=== PATIENT | female | born 1950 | race Caucasian/White ===

== ENCOUNTER 2016-07-06 15:26 | Emergency (ER) | payer MEDICARE, MEDICAID ==
[2016-03-03 10:08] VITALS: BMI 34.5
[~2016-07-06 15:26] MED LIST: ADVAIR HFA [SP]12 GM INH; BAYER CHEWABLE81 MG PO; CEFTIN500 MG PO; COUMADIN2.5 MG PO; COUMADIN5 MG PO; DILATRATE-SR40 MG PO; DUONEB 2.5-0.5 M3 ML IH; DUONEB 2.5-0.5 M3 ML UPD; GLUCOPHAGE1000 MG PO; GLUCOTROL 5 MG T5 MG PO; HYDROCODONE-APA1 TAB PO; IMDUR30 MG PO; IPRAT-ALBUT 0.5-3 ML UPD; ISORDIL40 MG PO; ISOSORBIDE DINI10 MG PO; LANTUS INSULIN10 ML PO; LANTUS SOL100 UNIT/1 SQ; LASIX20 MG PO; MEDROL DOSE PACK4 MG PO; MOBIC7.5 MG PO; MUCINEX DM ER1 EAC1 PO; NITROSTAT0.4 MG SL; NORVASC5 MG PO; PAXIL10 MG PO; PLAVIX75 MG PO; PRINIVIL20 MG PO; PROVENTIL HFA6.7 GM INH; RYTHMOL150 MG PO; SYMBICORT; SYMBICORT 16010.2 GM IH; SYMBICORT 16010.2 GM INH; TAGAMET HB200 MG PO; ULTRAM50 MG PO; WELLBUTRIN XL150 M1 PO
== END 2016-07-06 17:11 | disposition home or self-care (01) ==
LOC: D.ER 15:26
DX: S81.012A Laceration without foreign body, left knee, initial encounter (principal); W19.XXXA Unspecified fall, initial encounter; Y93.89 Activity, other specified; Y92.512 Supermarket, store or market as the place of occurrence of the external cause; I10 Essential (primary) hypertension; E11.65 Type 2 diabetes mellitus with hyperglycemia; Z79.4 Long term (current) use of insulin; F17.200 Nicotine dependence, unspecified, uncomplicated

== ENCOUNTER 2017-01-09 12:31 | Emergency (ER) | payer MEDICARE, MEDICAID ==
[2016-03-03 10:08] VITALS: BMI 34.5
[2017-01-09 12:48] LABS: APPEARANCE CLEAR (CLEAR); COLOR YELLOW (YELLOW); LEUKOCYTE ESTERASE NEGATIVE (NEGATIVE); NITRITE NEGATIVE (NEGATIVE); PROTEIN NEGATIVE (NEGATIVE)
[2017-01-09 12:49] LABS: BILIRUBIN NEGATIVE (NEGATIVE); GLUCOSE 1000 mg/dL (NEGATIVE); KETONE NEGATIVE (NEGATIVE); UROBILINOGEN NORMAL (NORMAL)
== END 2017-01-09 14:49 | disposition home or self-care (01) ==
LOC: D.ER 12:31
PROVIDERS: Emergency Medicine
DX: S39.012A Strain of muscle, fascia and tendon of lower back, initial encounter (principal); X58.XXXA Exposure to other specified factors, initial encounter; Y93.89 Activity, other specified; Y92.89 Other specified places as the place of occurrence of the external cause; E11.9 Type 2 diabetes mellitus without complications; Z79.4 Long term (current) use of insulin

== ENCOUNTER → 2017-01-22 10:19 | Outpatient (CLI) | payer MEDICARE, MEDICAID ==
[2016-03-03 10:08] VITALS: BMI 34.5
== END | disposition home or self-care (01) ==
LOC: D.MRI 10:19
DX: M47.26 Other spondylosis with radiculopathy, lumbar region (principal)

== ENCOUNTER 2017-06-14 15:03 | Emergency (ER) | payer MEDICARE, MEDICAID ==
[2016-03-03 10:08] VITALS: BMI 34.5
[2017-06-14 16:35] LABS: BASOPHILS 0.3 % (0-2); EOSINOPHILS 1.7 % (0-7); HEMATOCRIT 47.8 % (36.0-48.0); HEMOGLOBIN 15.8 g/dL (12-16); IMMATURE GRANULOCYTES 0.7 % (0-5); LYMPHOCYTES 21.2 % (15-50); MCH 32.6 pg (26.0-34.0); MCHC 33.1 g/dL (31.0-37.0); MCV 98.8 fL (80.0-100.0); MEAN PLATELET VOLUME 9.6 fL (7.4-10.4); MONOCYTES 9.4 % (2-11); NEUTROPHILS 66.7 % (40-80); RBC 4.84 10x6/uL (4.00-5.40); RDW 14.2 % (11.5-14.5); WBC 11.8 10x3/uL (4.8-10.8)
[2017-06-14 16:38] LABS: PLATELET COUNT 256 10x3/uL (130-400)
== END 2017-06-14 18:03 | disposition home or self-care (01) ==
LOC: D.ER 15:03
PROVIDERS: Family Medicine
DX: S20.212A Contusion of left front wall of thorax, initial encounter (principal); S20.211A Contusion of right front wall of thorax, initial encounter; V49.9XXA Car occupant (driver) (passenger) injured in unspecified traffic accident, initial encounter; Y93.89 Activity, other specified; Y92.410 Unspecified street and highway as the place of occurrence of the external cause; S80.212A Abrasion, left knee, initial encounter; E11.9 Type 2 diabetes mellitus without complications

== ENCOUNTER → 2017-06-24 17:44 | Outpatient (CLI) | payer MEDICARE, MEDICAID ==
[2016-03-03 10:08] VITALS: BMI 34.5
== END | disposition home or self-care (01) ==
LOC: D.MAMMO 05-19 11:00
DX: Z12.31 Encounter for screening mammogram for malignant neoplasm of breast (principal)

== ENCOUNTER 2017-07-20 08:10 | Day surgery (SDC) | payer MEDICARE ==
[2017-07-19 11:57] LABS: ANION GAP 12.7 mmol/L (8-16); CALCIUM 9.5 mg/dL (8.5-10.1); CARBON DIOXIDE 30.1 mmol/L (21.0-32.0); POTASSIUM - SERUM 4.8 mmol/L (3.5-5.1)
--- NOTE | ~2017-07-20 | OP ---
PATIENT NAME: MARKO HAMMER MEDICAL RECORD: [id number] :52 LOCATION:[facility] ADMISSION DATE: SURGEON: JYOTI MATOS MD DATE OF OPERATION: 07/20/2017 PREOPERATIVE DIAGNOSES: Lumbar spinal stenosis and foraminal stenosis, L4-L5, right. POSTOPERATIVE DIAGNOSES: Lumbar spinal stenosis and foraminal stenosis, L4-L5, right. PROCEDURE: Lumbar laminectomy, medial facetectomy and foraminotomy at L4-L5 on the right with METRx retractor. DESCRIPTION AND TECHNIQUE: After induction of general endotracheal anesthesia, the patient was rolled prone on Georgi frame. Lumbar spine was prepped and draped in usual sterile fashion. Fluoroscopic x-ray and spinal needle localized the L4-L5 interspace on the right side. A stab incision was created with #11 blade and series of dilators was used to advance a METRx retractor at the L4-L5 interspace on the right side. Fluoroscopic x-ray confirmed the level. A Midas Murali drill and microscope were used to perform a laminectomy, medial facetectomy, and foraminotomy L4-L5 on the right. Hypertrophied ligamentum flavum was removed with Cloward rongeurs. The dura was decompressed well. Meticulous hemostasis was maintained throughout the wound. The wound was irrigated with copious amounts of Ancef irrigant solution. The dura was decompressed well. Meticulous hemostasis was maintained throughout the wound. The fascia was closed with a 2-0 Vicryl suture. The subdermal layer was closed with 3-0 Vicryl suture. The skin was closed with kelsie. A sterile dressing was applied to the wound. The patient was awakened in good condition and taken to recovery. All counts were reported as correct. Estimated blood loss was minimal. TRANSINT:[id number] Voice Confirmation ID: [id number] DOCUMENT ID: [id number] JYOTI MATOS MD at 1947 CC: [id number] DICTATION DATE: 07/23/17 1435 INTEGRATED LOGISTICS SUPPORT MANAGER: 07/23/17 1451 [facility] 07/20/17 [place] [address]
[~2017-07-20 08:10] MED LIST changes: +GABAPENTIN100 MG PO; +INVOKANA300 MG PO; +ISOSORBIDE DINI30 MG PO; -LANTUS INSULIN10 ML PO; +LANTUS INSULIN10 ML SC; +PRAVASTATIN SOD10 MG PO; +PRINIVIL10 MG PO; -PRINIVIL20 MG PO
[2017-07-20 08:37] VITALS: BP 121/68; BMI 34.8
== END 2017-07-20 16:54 | disposition home or self-care (01) ==
LOC: D.OPS 08:10 → D.PAN 10:30 → D.OPS 16:54
PROVIDERS: Anesthesiology
DX: M48.061 Spinal stenosis, lumbar region without neurogenic claudication (principal); M54.16 Radiculopathy, lumbar region; I10 Essential (primary) hypertension; E11.9 Type 2 diabetes mellitus without complications; J44.9 Chronic obstructive pulmonary disease, unspecified; E66.9 Obesity, unspecified; Z01.812 Encounter for preprocedural laboratory examination

== ENCOUNTER → 2017-08-20 16:21 | Outpatient (CLI) | payer MEDICARE | END | disposition home or self-care (01) | LOC: D.MAMMO 07-29 13:30 | DX: R92.8 Other abnormal and inconclusive findings on diagnostic imaging of breast (principal) ==

== ENCOUNTER → 2017-10-27 12:55 | Outpatient (CLI) | payer MEDICARE | END | disposition home or self-care (01) | LOC: D.MRI 12:55 | DX: M54.16 Radiculopathy, lumbar region (principal) ==

== ENCOUNTER → 2018-02-21 16:05 | Outpatient (CLI) | payer MEDICARE ==
[~2018-02-21 16:05] MED LIST changes: +CLEOCIN HCL300 MG PO
== END | disposition home or self-care (01) ==
LOC: D.MAMMO 09:00
DX: R92.8 Other abnormal and inconclusive findings on diagnostic imaging of breast (principal)

== ENCOUNTER 2018-03-05 10:13 | Emergency (ER) | payer MEDICARE ==
[~2018-03-05] VITALS: Ht 154.9 cm; Wt 81.8 kg
[~2018-03-05 10:13] MED LIST changes: -CLEOCIN HCL300 MG PO
[2018-03-05 10:22] VITALS: Ht 154.9 cm; Wt 81.8 kg
[2018-03-05] MEDS ORDERED: CLEOCIN HCL300 MG PO (10:58)
[2018-03-05 11:25] VITALS: BP 131/78
== END 2018-03-05 11:26 | disposition home or self-care (01) ==
LOC: D.ER 10:13
DX: L03.114 Cellulitis of left upper limb (principal); E11.9 Type 2 diabetes mellitus without complications; I10 Essential (primary) hypertension; I25.10 Atherosclerotic heart disease of native coronary artery without angina pectoris; J44.9 Chronic obstructive pulmonary disease, unspecified

== ENCOUNTER → 2018-06-24 09:52 | Outpatient (CLI) | payer MEDICARE ==
[2018-03-05 10:22] VITALS: BMI 34.0
[~2018-06-24 09:52] MED LIST changes: +CLEOCIN HCL300 MG PO
== END | disposition home or self-care (01) ==
LOC: D.MRI 09:52
DX: M54.16 Radiculopathy, lumbar region (principal)

== ENCOUNTER 2018-08-10 08:00 | Outpatient (CLI) | payer MEDICARE ==
[2018-03-05 10:22] VITALS: Wt 83.5 kg
[2018-08-10] MEDS ORDERED: LEVEMIR FL100 UNIT/1 SC (09:13)
[2018-08-10 10:21] LABS: ANION GAP 11.6 mmol/L (8-16); CALCIUM 8.7 mg/dL (8.5-10.1); CARBON DIOXIDE 31.9 mmol/L (21.0-32.0); CREATININE - SERUM 0.9 mg/dL (0.6-1.3); POTASSIUM - SERUM 3.5 mmol/L (3.5-5.1)
[2018-08-10 11:27] LABS: HEMATOCRIT 43.6 % (36.0-48.0); HEMOGLOBIN 14.6 g/dL (12-16); MCH 31.9 pg (26.0-34.0); MCHC 33.5 g/dL (31.0-37.0); MCV 95.4 fL (80.0-100.0); MEAN PLATELET VOLUME 10.6 fL (7.4-10.4); RBC 4.57 10x6/uL (4.00-5.40); RDW 13.2 % (11.5-14.5); WBC 10.1 10x3/uL (4.8-10.8)
== END 2018-08-10 08:01 | disposition home or self-care (01) ==
LOC: D.OPS 08:00 → D.PAN 08-11 12:45 → EDSTATUS 08-11 12:45 → D.OPS 08-11 12:45
PROVIDERS: Anesthesiology; ATTEND Neurological Surgery
DX: M54.16 Radiculopathy, lumbar region (principal)

== ENCOUNTER → 2018-08-24 18:24 | Outpatient (CLI) | payer MEDICARE ==
[2018-03-05 10:22] VITALS: BMI 34.0
[~2018-08-24 18:24] MED LIST changes: +LEVEMIR FL100 UNIT/1 SC
== END | disposition home or self-care (01) ==
LOC: D.MAMMO 09:00
PROVIDERS: ATTEND Family Medicine
DX: R92.8 Other abnormal and inconclusive findings on diagnostic imaging of breast (principal)

== ENCOUNTER 2018-09-09 09:05 | Day surgery (SDC) | payer MEDICARE ==
[2018-09-09 09:23] LABS: HEMATOCRIT 45.5 % (36.0-48.0); HEMOGLOBIN 15.2 g/dL (12-16); MCH 31.9 pg (26.0-34.0); MCHC 33.4 g/dL (31.0-37.0); MCV 95.6 fL (80.0-100.0); MEAN PLATELET VOLUME 9.7 fL (7.4-10.4); RBC 4.76 10x6/uL (4.00-5.40); RDW 13.8 % (11.5-14.5); WBC 7.6 10x3/uL (4.8-10.8)
[2018-09-09 09:34] LABS: ANION GAP 8.4 mmol/L (8-16); CALCIUM 9.6 mg/dL (8.5-10.1); CARBON DIOXIDE 31.8 mmol/L (21.0-32.0); POTASSIUM - SERUM 4.2 mmol/L (3.5-5.1)
[2018-09-09 10:29] VITALS: BP 165/96; BMI 34.0
--- NOTE | 2018-09-09 17:56 | NUR ---
PATIENT COMPLAINED OF BEING SHORT OF BREATH. O2 SAT 94% 4L NASAL CANNULA. PATIENT'S STATES SHE DOES WEAR HOME O2 2L/NC CONTINOUSLY. CONSULTED ANESTHESIA. VERBAL ORDERS RECEIVED TO ADMINISTER ALBUTEROL UPDRAFT IN PACU NOW. ORDERS RECEIVED AND IMPLEMENTED. WILL CONTINUE TO MONITOR.
--- NOTE | 2018-09-09 19:28 | NUR ---
DISCHARGE INSTRUCTIONS REVIEWED WITH PATIENT AND FAMILY, DISCHARGED HOME VIA WHEELCHAIR TO PRIVATE VEHICLE WITH FAMILY
--- NOTE | 2018-09-22 15:29 | OP ---
PATIENT NAME: MARKO HAMMER MEDICAL RECORD: [id number] :52 LOCATION:[facility] ADMISSION DATE: SURGEON: JYOTI TAYLOR MD DATE OF OPERATION: 09/09/2018 SURGEON: Dr. Jyoti Taylor PREOPERATIVE DIAGNOSES: Lumbar spinal stenosis and foraminal stenosis with L5 radiculopathy and L4-L5 foraminal stenosis. POSTOPERATIVE DIAGNOSES: Lumbar spinal stenosis and foraminal stenosis with L5 radiculopathy and L4-L5 foraminal stenosis. PROCEDURE: Redo lumbar laminectomy at L4-L5 with exploration of right L5 nerve root. DESCRIPTION AND TECHNIQUE: After induction of general endotracheal anesthesia, the patient was rolled prone on the Georgi frame. Lumbar spine was prepped and draped in usual sterile fashion. Fluoroscopic x-ray and spinal needle localized at the L4-L5 interspace on the right side. After infiltration 1:100,000 epinephrine and 1% lidocaine, a stab incision was created with a #11 blade. A series of dilators was used to advance a METRx retractor to the L4-L5 interspace on the right side. The level was confirmed with fluoroscopic x-ray. A MRI Interventionsas Murali drill and microscope were used to perform a laminectomy, medial facetectomy, and foraminotomy L4-L5 on the right. Hypertrophied ligamentum flavum was removed with Cloward rongeurs. Following this, the L4 and L5 nerve roots were decompressed well. Meticulous hemostasis was maintained throughout the wound. The disc space was found to cause no significant nerve root compression, was therefore left untouched. The retractor was removed. The fascia was closed with 2-0 Vicryl suture. Subdermal layer was closed with 3-0 Vicryl suture. The skin was closed with kelsie. A sterile dressing was applied to the wound. The patient was awakened in good condition and taken to the recovery. All counts were reported as correct. Estimated blood loss was minimal. TRANSINT:[id number] Voice Confirmation ID: [id number] DOCUMENT ID: [id number] JYOTI TAYLOR MD at 1529 CC: [id number] DICTATION DATE: 09/14/182201 CLINICAL SERVICES MANAGER: 09/15/18 0331 [facility] 09/09/18 [place] [id number]
== END 2018-09-09 19:28 | disposition home or self-care (01) ==
LOC: D.OPS 09:05 → D.PAN 11:45 → D.OPS 11:45
PROVIDERS: Anesthesiology; ATTEND Neurological Surgery
DX: M54.16 Radiculopathy, lumbar region (principal); M48.061 Spinal stenosis, lumbar region without neurogenic claudication

== ENCOUNTER 2018-09-18 17:51 | Observation (INO) | payer MEDICARE ==
[~2018-09-18] VITALS: Ht 154.9 cm; Wt 81.8 kg
--- NOTE | ~2018-09-18 | DS ---
PATIENT:MARKO RUSSELL :52 MEDICAL RECORD: [id number] DISCHARGE SUMMARY ADMISSION DATE: 09/18/18 DISCHARGE DATE: 09/19/18 DISCHARGE DIAGNOSES: 1. Unstable angina. 2. PTCA and stent of this admission. 3. Coronary artery disease. 4. Hypertension. 5. Hyperlipidemia. HISTORY AND HOSPITAL COURSE: Ms. Russell presented with anginal symptomatology, found to have 90% plus stenosis of her LAD. Underwent successful PTCA and stent of the LAD with no further anginal symptomatology. Discharged home to continue her aspirin and Plavix. Follow up with [facility] in 1 month. TRANSINT:[id number] Voice Confirmation ID: [id number] DOCUMENT ID: [id number] JOSE ARMANDO RODRIGUES MD CC: [id number] DICTATION DATE: 09/19/18 1241 CERTIFIED BENCH JEWELER TECHNICIAN: 09/20/18 0447 DIS IN 09/19/18 [address] [place] [address]
--- NOTE | ~2018-09-18 | HP ---
PATIENT: MARKO RUSSELL MEDICAL RECORD: [id number] ACCOUNT: [id number] LOCATION:. D.2117 : 52 ADMISSION DATE: 09/18/18 PCP: LOKESH COOL MD HISTORY AND PHYSICAL EXAMINATION ADMITTING DIAGNOSES: 1. Unstable angina. 2. Coronary artery disease. 3. Previous multivessel PTCA stent, last being 2015. 4. Paroxysmal atrial fibrillation. 5. Hypertension. 6. Hyperlipidemia. 7. Chronic obstructive pulmonary disease. 8. Past smoking history. HISTORY OF PRESENT ILLNESS: Mrs. Russell has had increasing episodes of chest pain, chest discomfort compatible with angina despite maximal medical therapy of beta-jocelyne, ANGELY inhibitor and nitrate. Her chest pain has been increasing for the past 2 weeks. It is just like that of her previous angina. Last cardiac stent she required was in 2015. She has not had any atrial fibrillation or palpitations. The chest pain got quite severe yesterday. She presented to the Emergency Room. Her EKG is suggestive of previous anterior myocardial infarction; however, there is no acute ST-T changes. PHYSICAL EXAMINATION: GENERAL APPEARANCE: Well-nourished, well-developed, appears stated age. Level of distress, comfortable. PSYCHIATRIC: Mental status, alert, normal affect. Orientation, oriented to time, place and person. EYES: Lids and conjunctiva, noninjected. No discharge, no pallor. ENT: Lips, teeth, gums, normal dentition. Oropharynx, no cyanosis, no pallor. NECK: Carotid arteries, bilateral normal upstroke, no bruits, no thrills. JUGULAR VEINS: No jugular venous pressure or distention. CERVICAL LYMPH NODES: Nontender, nonenlarged. THYROID: Not enlarged. Nontender. No nodules. LUNGS: Respiratory effort, unlabored. CHEST: Normal curvature. No thoracic deformity. No chest wall tenderness. Percussion, resonant. Auscultation, clear. No wheezes, no rales, no rhonchi. CARDIOVASCULAR: Precordial exam, nondisplaced. No heaves or pericardial thrills. Rate and rhythm, regular. Heart sounds, normal S1, normal S2. No S3, no gallop, no rub. Systolic murmur, not heard. Diastolic murmur, not heard. EXTREMITIES: No cyanosis, no edema. Peripheral pulses, full and equal in all extremities, except as noted. No bruits appreciated. ABDOMEN: Soft, nondistended. Normal aorta. No bruit. Nontender. No masses. Liver, nontender, no hepatomegaly. Spleen, nontender, no splenomegaly. MUSCULOSKELETAL: No joint tenderness. No joint swelling. No erythema. NEUROLOGICAL: Normal gait, normal strength, normal tone. SKIN: Warm and dry. OVERALL IMPRESSION: Continued episodes of chest discomfort in an unstable fashion. We will proceed with coronary angiography. Further care depends upon findings of the angiography. TRANSINT:[id number] Voice Confirmation ID: [id number] DOCUMENT ID: [id number] HISTORY AND PHYSICAL [id number] MARKO RUSSELL JEFFREY MD CC: [id number] DICTATION DATE: 09/19/18903 CAR STARTER: 09/19/18915 ADM IN [address] [place] [address]
--- NOTE | ~2018-09-18 | HEMODYNAMI ---
PATIENT:MARKO HAMMER MEDICAL RECORD: [id number] : 52 [id number] ADMISSION DATE: 09/18/18 Generatedon:09/19/201812:45 Patient name: MARKO HAMMER Patient #: [id number] : 1950 Date of study: 09/19/2018 Page: Of Hemodynamic Procedure Report Patient Data Patient Demographics Procedure consent was obtained First Name: MARKO Gender: Female Last Name: JAQUELIN : 1950 [facility] Initial: ANA Age: 68 year(s) Patient #: [id number] Race: SSN: [id number] Additional ID: [id number] Contact details Address: [address] [address] State: [place] City: [place] Zip code: [address] Past Medical History History of disease Date Diagnosis Comments CAD Allergies: No known allergies Admission Admission Data Admission Date: 09/18/2018 Admission Time: 20:00 Room #: D.2117 Height (in.): 60.63 BSA: 1.8 (m2) Height (cm.): 154 BMI: 34.58 (kg/m2) Weight (lbs.): 180.78 Weight (kg.): 82 Lab Results Lab Result Date: 09/19/2018 Lab Result Time: 0:00 Biochemistry Name Units Result Min Max BUN mg/dl 23 --(----)-* 7 18 Creatinine mg/dl 1.1 --(--*-)-- 0.6 1.3 CBC Name Units Result Min Max Hematocrit % 45 --(*---)-- 42 54 Hemoglobin g/dl 15.3 --(-*--)-- 13.5 17.5 Procedure Procedure Types Cath Procedure Diagnostic Procedure [facility] w/Coronaries FFR/IVUS FFR Initial Sedation Charges Moderate Sedation up to 15 minutes PCI Procedure Coronary Stent Coronary Stent Initial Procedure Description Procedure Date Procedure Date: 09/19/2018 Procedure Start Time: 12:21 Procedure End Time: 12:39 Procedure Staff Name Function Kang Mcclain MD Performing Physician Shayne Zhang RT Monitor Karma Lopez RT Scrub Tamra Xiao RN Nurse Luiz Goode RN Cyanide Furnace Operator Procedure Data Cath Procedure Fluoroscopy Diagnostic fluoroscopy Total fluoroscopy Time: 4.9 time: 4.9 min min Diagnostic fluoroscopy Total fluoroscopy dose: 808 dose: 808 mGy mGy Contrast Material Contrast Material Type Amount (ml) Isovue 300 127 Entry Location Entry Primary Successful Side Size Upsize Upsize Entry Closure Succes sful Closure Location (Fr) 1 (Fr) 2 (Fr) Remarks Device Remarks Femoral Right 5 Fr 6 Fr Exoseal artery Short Estimated blood loss: 10 ml Diagnostic catheters Device Type Used For End Catheter Placement MULTIPACK Pigtail 5 Fr Procedure catheter MULTIPACK JL 4.0 5Fr Procedure catheter MULTIPACK 3DRC 5Fr Procedure catheter Procedure Complications No complications Procedure Medications Medication Administration Route Dosage Oxygen etCO2 Nasal cannula 2 l/min Lidocaine 2% added to field 20 Heparin Flush Bag added to field 2 bags (1000units/500ml NS) 0.9% NaCl I.V. 100 ml/hr Versed I.V. 1 mg Fentanyl I.V. 50 mcg Versed I.V. 1 mg Fentanyl I.V. 50 mcg Heparin Bolus I.V. 4000 units Nitroglycerin IC/IA I.C. 200 mcg Plavix P.O. 75 mg Hemodynamics Rest BSA: 1.8 (m2) HGB: 15.3 (g/dl) O2 Consumption: Estimated: 166.54 (ml/min) O2 Con sumption indexed: Estimated:92.52 (ml/min/m) Heart Rate: 69 (bpm) Snapshots Pre Cath Intra NCS Post Cath Vital Signs Time Heart Resp SPO2 etCO2 NIBP (mmHg) Rhythm Pain Sedation Rate (ipm) (%) (mmHg) Status Level (bpm) 12:03:03 63 16 98 38.2 Measuring NSR 0 (11) 10(A) , No pain 12:03:40 61 20 98 38.2 189/90(158) NSR 0 (11) 10(A) , No pain 12:08:17 63 14 99 39.7 182/84(128) NSR 0 (11) 10(A) , No pain 12:12:39 64 10 97 45.7 134/73(91) NSR 0 (11) 10(A) , No pain 12:16:55 59 20 96 48.6 110/72(106) NSR 0 (11) 10(A) , No pain 12:21:04 61 16 96 38.2 110/77(106) NSR 0 (11) 9(A) , No pain 12:25:20 70 17 93 20.9 94/58(81) NSR 0 (11) 9(A) , No pain 12:29:26 69 18 96 14.9 107/70(103) NSR 0 (11) 9(A) , No pain 12:33:38 64 10 96 18.7 102/67(99) NSR 0 (11) 9(A) , No pain 12:37:48 73 15 96 29.2 84/54(76) NSR 0 (11) 10(A) , No pain 12:42:02 69 6 97 17.2 98/86(96) NSR 0 (11) 10(A) , No pain 12:44:34 66 7 97 38.9 99/63(91) NSR 0 (11) 10(A) , No pain Medications Time Medication Route Dose Verified Delivered Reason Notes Effectiveness by by 12:04:08 Oxygen etCO2 2 Kang Buffie used for Nasal l/min Johny Xiao RN procedure cannula 12:08:14 Lidocaine 2% added 20ml Kang Kang for local to vial Johny Mcclain MD anesthetic field 12:08:20 Heparin Flush added 2 Kang Kang used for Bag to bags Johny Mcclain MD procedure (1000units/500ml field NS) 12:08:28 0.9% NaCl I.V. 100 Kang Buffie Per physician ml/hr Johny Xiao RN 12:13:34 Versed I.V. 1 mg Kang Buffie for sedation Johny Xiao RN 12:13:40 Fentanyl I.V. 50 Kang Buffie for sedation mcg Johny Xiao RN 12:20:15 Versed I.V. 1 mg Kang Buffie for sedation Johny Xiao RN 12:20:19 Fentanyl I.V. 50 Kang Buffie for sedation mcg Johny Xiao RN 12:27:54 Heparin Bolus I.V. 4000 Kang Buffie for verif ied units Johny Xiao RN anticoagulation with dr mcclain 12:36:09 Nitroglycerin I.C. 200 Kang Kapadia for IC/IA mcg Johny Mcclain MD vasodilation 12:39:23 Plavix P.O. 75 mg Kang Barboza for Johny Xiao RN antiplatelet therapy Procedure Log Time Note 11:32:06 Signed procedure consent form obtained from patient. 11:32:10 Time tracking: Regular hours (M-F 7:00 - 5:00) 11:32:15 Plan of Care:Hemodynamics will remain stable., Cardiac rhythm will remain stable., Comfort level will be maintained., Respiratory function will remain adequate., Patient/ family verbilizes understanding of procedure., Procedure tolerated without complication., Recovers from procedure without complications.. 11:32:18 Diagnostic Cath status Urgent 11:33:02 Patient allergic to No known allergies 11:33:11 Patient Weight : 180.78 lbs 11:33:15 Patient Height : 60.63 inches 11:35:10 Lab Result : Creatinine 1.1 mg/dl 11:35:10 Lab Result : BUN 23 mg/dl 11:35:10 Lab Result : Hemoglobin 15.3 g/dl 11:35:10 Lab Result : Hematocrit 45 % 11:40:50 Luiz Goode RN sent for patient. Start room use. 11:49:14 Patient received from Med II to CCL 1 Alert and oriented. Tansferred to table in Supine position. 11:49:15 Warm blankets applied, and mckenna hugger turned on for patient comfort. 11:49:15 Correct patient and procedure confirmed by team. 11:49:16 ECG and BP/O2 sat monitors applied to patient. 11:49:18 Pre-procedure instructions explained to patient. 11:49:19 Pre-op teaching completed and patient verbalized understanding. 11:49:20 Family in waiting room. 11:52:20 Is patient on blood thinner?Yes 11:52:30 PRE LOADED ON PLAVIX 11:52:32 Patient diabetic? Yes. 11:52:33 If diabetic: On Metformin? No 11:52:38 Previous problem with sedation/anesthesia? No ? 11:52:39 Snore? No 11:52:40 Sleep apnea? No 11:52:41 Deviated septum? No 11:52:42 Opens mouth fully? Yes 11:52:43 Sticks out tongue? Yes 11:52:46 Airway obstruction? Yes COPD 11:52:49 Dentures? Yes OUT 12:01:13 Vital chart was started 12:01:24 Baseline sample Acquired. 12:01:29 Rhythm: sinus rhythm 12:01:35 Full Disclosure recording started 12:03:05 H&P Date Dictated: 09/19/2018 Within 30 days and on chart.. 12:03:11 Is the patient allergic to Iodine/contrast media? No. 12:03:17 Patient NPO since Midnight. 12:03:38 Pre procedure: right dorsailis pedis pulse 2+ Normal; easily identifiable; not easily obliterated 12:03:44 Patient pain scale 0/10 ?. 12:04:00 IV patent on arrival in left forearm with 0.9% NaCl at [facility]. 12:04:03 Lab results completed and on chart. 12:04:08 Oxygen 2 l/min etCO2 Nasal cannula was administered by Tamra Xiao RN; used for procedure; 12:04:09 Right groin area was prepped with chlora-prep and draped in sterile fashion 12:04:24 Alarms reviewed by R. N. 12:04:26 Sharps counted by scrub and verified by R.N. 12:05:35 Use device set Femoral Dx 12:05:36 ACIST Syringe (43782) opened to sterile field. 12:05:37 Bag Decanter (2002S) opened to sterile field. 12:05:38 ACIST Hand Control (53898) opened to sterile field. 12:05:39 ACIST Manifold (30001) opened to sterile field. 12:05:39 Tegaderm 4 x 4 (1626W) opened to sterile field. 12:05:40 Medline Cath Pack ([id number]) opened to sterile field. 12:05:41 DIAGNOSTIC WIRE .035 260cm J wire (151762) opened to sterile field. 12:05:42 SHEATH 5FR [place] (QTB192) opened to sterile field. 12:05:44 DIAGNOSTIC Multipack 5Fr catheter set (ZW9439) opened to sterile field. 12:08:14 Lidocaine 2% 20ml vial added to field was administered by Kang Mcclain MD; for local anesthetic; 12:08:20 Heparin Flush Bag (1000units/500ml NS) 2 bags added to field was administered by Kang Mcclain MD; used for procedure; 12::28 0.9% NaCl 100 ml/hr I.V. was administered by Tamra Xiao RN; Per physician; 12:: --------ALL STOP TIME OUT------ 12::11 Final Timeout: patient, procedure, and site verified with staff and physician. All members of the team are in agreement. 12:: Right groin site verified by team. 12:: Maximum allowable Isovue 300 dose 300ml. Physician notified. (300ml for normal creatinines. For patients with creatinine of 1.7 or higher multiply weight(kg) x 5 divided by creatinine.) 12:: Fire Safety Assessment: A--An alcohol-based skin anteseptic being used preoperatively., C--Open oxygen or nitrous oxide is being used., D--An ESU, laser, or fiber-optic light is being used. 12::33 Physical assessment completed. ASA score P 2 - A patient with mild systemic disease as per Kang Mcclain MD. 12::35 Sedation plan: IV Moderate Sedation Medication:Versed, Fentanyl 12:13:34 Versed 1 mg I.V. was administered by Tamra Xiao RN; for sedation; 12:13:40 Fentanyl 50 mcg I.V. was administered by Tamra Xiao RN; for sedation; 12:20:15 Versed 1 mg I.V. was administered by Tamra Xiao RN; for sedation; 12:20:19 Fentanyl 50 mcg I.V. was administered by Tamra Xiao RN; for sedation; 12:21:52 Procedure started. 12:21:55 Local anesthetic to right femoral artery with Lidocaine 2% by Kang Mcclain MD.INITIAL ACCESS ONLY 12:22:43 A 5 Fr sheath was inserted into the Right Femoral artery 12:23:00 A MULTIPACK Pigtail 5 Fr catheter was advanced over the wire and used for Procedure. 12::11 LV gram done using RAMSEY 12::25 Injector settings: Ml/sec: 10, Volume: 20, 12:23:39 EF : 60 % 12:23:41 Catheter removed. 12::45 A MULTIPACK JL 4.0 5Fr catheter was advanced over the wire and used for Procedure. 12:25:12 LCA angiography performed. 12:25:13 Catheter removed. 12:25:19 A MULTIPACK 3DRC 5Fr catheter was advanced over the wire and used for Procedure. 12:26:07 RCA angiography performed. 12:26:09 Catheter removed. 12:26:11 SHEATH 6FR [place] (MOB922) opened to sterile field. 12:26:12 INFLATOR Merit BasixCompak (UW8983) opened to sterile field. 12:26:27 CHOICE PT Extra Support 182cm wire ([id number]) opened to sterile field. 12:26:32 [place] Verrata Plus pressure wire (98792E) opened to sterile field. 12::48 GUIDE 6FR XBLAD 3.5 catheter ([id number]) opened to sterile field. 12::57 Sheath upsized to a 6 Fr Short. 12:27:45 6 Fr XBLAD 3.5 guide catheter was inserted over the wire 12::54 Heparin Bolus 4000 units I.V. was administered by Tamra Xiao RN; for anticoagulation; verified with dr mcclain 12:28:36 FFR/IFR wire advanced. 12:29:38 Wire removed. 12:30:36 CHOICE ES 182 wire advanced. 12:30:38 Wire advanced across lesion. 12:31:53 Place stent Inflation Number: 1 A MELBA RX 2.0 x 8 stent ([id number]) was prepped and advanced across the Mid LAD. The stent was deployed at 13 XAVIER for 0:00 (min:sec). 12:32:58 Inflation number: 2 The stent balloon was then re-inflated across the Mid LAD to 1 XAVIER for 0:00 (min:sec). 12:33:06 Stent catheter was removed intact over wire. 12:34:20 Place stent Inflation Number: 3 A MELBA RX 2.5 x 18 stent ([id number]) was prepped and advanced across the Mid LAD. The stent was deployed at 11 XAVIER for 0:00 (min:sec). 12:34:42 Stent catheter was removed intact over wire. 12:36:09 Nitroglycerin IC/IA 200 mcg I.C. was administered by Kang Mcclain MD; for vasodilation; 12:36:53 Wire removed. 12:36:54 Guide catheter removed. 12:37:02 EXOSEAL 6Fr (EX600) opened to sterile field. 12:37:47 Sheath removed intact; hemostasis achieved with Exoseal to the Right Femoral artery. 12:37:51 Procedure ended.(Physican Out) 12:38:29 Fluoroscopy time 04.90 minutes. 12:38:32 Fluoroscopy dose: 808 mGy 12:38:32 Flurop Dose total: 808 12:38:36 Contrast amount:Isovue 300 127ml. 12:38:37 Sharps counted by scrub and verified by R.N. 12:38:40 Post-op/insertion site Right Femoral artery dressed using a 4 x 4 and Tegaderm. 12:38:42 Post-procedure physical assessment completed. ASA score P 2 - A patient with mild systemic disease as per Kang Mcclain MD. 12:38:45 Post procedure rhythm: sinus rhythm 12:38:47 Estimated blood loss: 10 ml 12:38:49 Post procedure instruction explained to patient.Patient verbalizes understanding. 12:38:50 Patient needs reinforcement of post procedure teaching. 12:39:16 Procedure type changed to Cath procedure, Diagnostic procedure, LHC, LHC w/Coronaries, FFR/IVUS, FFR Initial, Sedation Charges, Moderate Sedation up to 15 minutes, PCI procedure, Coronary Stent, Coronary Stent Initial 12:39:23 Plavix 75 mg P.O. was administered by Tamra Xiao RN; for antiplatelet therapy; 12:39:47 Procedure and supply charges have been captured, reviewed, submitted and are correct. 12:39:49 Procedure Complication : No complications 12:39:51 Vital chart was stopped 12:39:53 See physician's report for complete and final results. 12:39:54 Report given to Pre/Post Procedure Room. 12:39:57 Patient transfered to Pre/Post Procedure Room with Bed. 12:39:58 Procedure ended. 12:39:58 Full Disclosure recording stopped 12:40:01 End room use (Document Last) Intervention Summary Intervention Notes Time ActionType Lesion and Equipment Used Action# Pressure Duration Attributes 12:31:53 Place stent Mid LAD MELBA RX 2.0 x 1 13 00:00 8 stent ([id number]) 12:32:58 Reinflate Mid LAD MELBA RX 2.0 x 2 1 00:00 stent 8 stent balloon ([id number]) 12:34:20 Place stent Mid LAD MELBA RX 2.5 x 3 11 00:00 18 stent ([id number]) Device Usage Item Name Manufacture Quantity Catalog Number Hospital Part Current Minimal Lot# / Charge Number Stock Stock Serial# Code ACIST Syringe Acist 1 45770 317770 981988 200927 20 (40244) Medical Systems trustedsafe Bag Decanter Microtek 1 2001S 793327 98999 130738 5 (2001S) Medical Inc. ACIST Hand Acist 1 28909 496570 719850 220364 5 Control Medical (45866) Systems Inc ACIST Manifold Acist 1 88399 673190 355997 445374 5 (33084) Medical Systems Inc Tegaderm 4 x 4 3M 1 1626W 835869 766773 837874 5 (1626W) Medline Cath Medline 1 [id number] 327378 63861 702656 5 Pack ([id number]) DIAGNOSTIC St Gerardo 1 014880 291310 969596 237851 30 WIRE .035 260cm J wire (314427) SHEATH 5FR Terumo 1 NHM496 231001 631953 181537 5 [place] (XPD924) DIAGNOSTIC Cardinal 1 MM0933 977840 14299 859443 30 Multipack 5Fr Health catheter set (QC6611) MULTIPACK Cardinal 1 896998 5 Pigtail 5 Fr Health catheter MULTIPACK JL Cardinal 1 255489 5 4.0 5Fr Health catheter MULTIPACK 3DRC Cardinal 1 024144 5 5Fr catheter Health SHEATH 6FR Terumo 1 IPY481 762056 108885 997688 40 [place] (SVX041) INFLATOR Merit Merit 1 JM4521 624893 890374 970817 15 StraighterLine (TX5925) CHOICE PT [place] 1 [id number] 601885 009798 013317 5 Extra Support Scientific 182cm wire ([id number]) Glenham Glenham 1 94918P 140938 183976735 600425 5 Verrata Plus pressure wire (34752A) GUIDE 6FR Cardinal 1 [id number] 748948 779560 167800 10 XBLAD 3.5 Health catheter (94503417) MELBA RX 2.0 x Medtronic 1 [id number] 391033 9427026 084396 5 [id number] 8 stent ([id number]) MELBA RX 2.5 x Medtronic 1 [id number] 090897 1239492 033778 5 [id number] 18 stent ([id number]) EXOSEAL 6Fr Cardinal 1 EX600 570683 461708 252314 10 (EX600) Health Signature Audit [place] Stage Time Signature Unsigned Intra-Procedure 09/19/2018 Karma Lopez 12:45:05 PM RT(R) Signatures Monitor : Shayne Zhang RT Signature : Date : Time : [id number] [place] [address]
--- NOTE | ~2018-09-18 | OP ---
PATIENT NAME: MARKO HAMMER MEDICAL RECORD: [id number] :52 LOCATION:[facility] ADMISSION DATE:09/18/18 SURGEON: JOSE ARMANDO RODRIGUES MD DATE OF OPERATION: 09/19/2018 PROCEDURES: 1. PTCA stent LAD. 2. IFR. 3. Left heart catheterization. 4. Selective coronary angiography. 5. Left ventriculogram. INDICATION: Angina and coronary artery disease. PROCEDURE IN DETAIL: After informed consent was obtained and after a detailed description of risks, benefits as well as alternative therapies, the patient elected to proceed with angiogram and angioplasty. The right femoral area was prepped and draped in normal sterile fashion. Right femoral artery was cannulated via modified Seldinger technique with placement of 6-Filipino sheath. All catheters exchanged through this sheath. FINDINGS: Left ventriculogram performed in standard 30-degree RAMSEY view, reveals good cardiac wall motion throughout all segments. Overall ejection fraction estimated 60%. SELECTIVE CORONARY ANGIOGRAPHY: 1. Left main is with no significant angiographic disease. 2. Left anterior descending has previously placed stents, these are widely patent. There is 80% stenosis between the stents, 90+ percent stenosis after the stents. 3. The left circumflex has mild irregularities. There is previously placed stents with a questionable area of in-stent restenosis; however, IFR was normal. 4. The right coronary has mild irregularities, but no flow-limiting stenosis. Previously placed stents are widely patent with no significant restenosis. BOX PRESS OPERATOR STENT OF THE LAD: The stents used were 2.5 x 18 and 2.0 x 8, both [place] stents. Result was 0% residual stenosis. OVERALL IMPRESSION: Successful PTCA stent of the LAD going from 90% initial stenosis to 0% residual. TRANSINT:[id number] Voice Confirmation ID: [id number] DOCUMENT ID: [id number] JOSE ARMANDO RODRIGUES MD CC: [id number] DICTATION DATE: 09/19/18 1243 DIRECTOR WOMEN: 09/19/18 1329 [place] [address]
[2018-09-18 18:10] LABS: BASOPHILS 0.5 % (0-2); HEMOGLOBIN 15.3 g/dL (12-16); IMMATURE GRANULOCYTES 0.6 % (0-5); MCH 32.2 pg (26.0-34.0); MCV 94.7 fL (80.0-100.0); MEAN PLATELET VOLUME 9.7 fL (7.4-10.4); MONOCYTES 9.7 % (2-11); NEUTROPHILS 59.2 % (40-80); PLATELET COUNT 286 10x3/uL (130-400); RBC 4.75 10x6/uL (4.00-5.40); RDW 13.6 % (11.5-14.5); WBC 10.9 10x3/uL (4.8-10.8)
[2018-09-18 18:25] LABS: APTT 24.7 SECONDS (22.8-39.4); PROTIME 12.7 SECONDS (11.6-15.0)
[2018-09-18 18:48] LABS: AMYLASE - SERUM 52 U/L (25-115); LIPASE 203 U/L (73-393)
[2018-09-18 18:50] LABS: ALBUMIN 3.4 g/dL (3.4-5.0); ALKALINE PHOSPHATASE 69 U/L (46-116); ALT (SGPT) 38 U/L (10-68); BILIRUBIN - TOTAL 0.41 mg/dL (0.2-1.3); CALC OSMOLALITY 280 mosm/kg (275-300); CALCIUM 9.4 mg/dL (8.5-10.1); CARBON DIOXIDE 27.8 mmol/L (21.0-32.0); CHLORIDE - SERUM 100 mmol/L (98-107); CREATININE - SERUM 1.1 mg/dL (0.6-1.3); POTASSIUM - SERUM 4.4 mmol/L (3.5-5.1); PROTEIN - SERUM 7.5 g/dL (6.4-8.2); SODIUM 136 mmol/L (136-145); UREA NITROGEN 23 mg/dL (7-18); eGFR NON AFRICAN AMERICAN 52 mL/min (90-120)
[2018-09-18 18:54] LABS: GLUCOSE 195 mg/dL (74-106)
[2018-09-18 19:00] LABS: CKMB 1.4 U/L (0.0-3.6); CREATINE KINASE 112 UL (21-215); MAGNESIUM - SERUM 1.7 mg/dL (1.8-2.4)
[2018-09-18 19:03] LABS: TROPONIN-I < 0.017 ng/mL (0.000-0.060)
[2018-09-18 19:44] VITALS: BP 139/76
[2018-09-18 20:00] VITALS: BP 119/61
[2018-09-18 23:05] VITALS: BP 119/61; Ht 154.9 cm; Wt 81.8 kg
[2018-09-19] VITALS: BP 99/57
[2018-09-19 01:07] LABS: CKMB 1.2 U/L (0.0-3.6); CREATINE KINASE 83 UL (21-215)
[2018-09-19 01:08] LABS: TROPONIN-I < 0.017 ng/mL (0.000-0.060)
[2018-09-19 04:00] VITALS: BP 122/56
[2018-09-19 08:55] VITALS: BP 135/69
--- NOTE | 2018-09-19 12:27 | MORECARE ---
CASE MANAGEMENT DISCHARGE SUMMARY PATIENT: MARKO HAMMER UNIT: [id number] ADM DATE: 09/18/18 AGE: 68 : 52 SEX: F ROOM/BED: D.2117 AUTHOR: SHARLA MAGALLON PHYSICIAN: REFERRING PHYSICIAN: JOSE ARMANDO RODRIGUES MD DATE OF SERVICE: 09/19/18 Discharge Plan Patient Name: MARKO HAMMER [facility] [facility] 1950 Planned Disposition: Anticipated Discharge Date: Discharge Date: Expected LOS: Initial Reviewer: [email or web address] Initial Review Date: 09/18/2018 Generated: 09/19/18 1:27 pm Patient Name: MARKO HAMMER Page 11533 at 1227 All edits/amendments must be made on the electronic document DICTATION DATE: 09/19/18 1226 AEROLOGIST: STEFANI 09/19/18 1226 RPT#: [id number] DC DATE: STATUS: ADM IN [facility] [address] [place] [address] END OF REPORT
[2018-09-19] MEDS ORDERED: PLAVIX75 MG PO (12:57)
== END 2018-09-19 16:45 | disposition home or self-care (01) ==
LOC: D.ER 17:51 → OBSVTIME 20:00 → D.EDHOLD 20:00 → D.M2 20:05 → D.CLR 09-19 12:53
PROVIDERS: Emergency Medicine; Family Medicine; ADMIT Internal Medicine Interventional Cardiology; ATTEND Internal Medicine Interventional Cardiology
DX: I25.110 Atherosclerotic heart disease of native coronary artery with unstable angina pectoris (principal); I48.0 Paroxysmal atrial fibrillation; I10 Essential (primary) hypertension; E78.5 Hyperlipidemia, unspecified; J44.9 Chronic obstructive pulmonary disease, unspecified; T82.855A Stenosis of coronary artery stent, initial encounter; Y83.8 Other surgical procedures as the cause of abnormal reaction of the patient, or of later complication, without mention of misadventure at the time of the procedure

== ENCOUNTER → 2019-05-23 12:20 | Outpatient (CLI) | payer MEDICARE ==
[2018-09-18 23:05] VITALS: BMI 34.0
== END | disposition home or self-care (01) ==
LOC: D.MRI 12:20
PROVIDERS: ATTEND Family Medicine
DX: M75.101 Unspecified rotator cuff tear or rupture of right shoulder, not specified as traumatic (principal)

== ENCOUNTER 2019-06-14 08:00 | Outpatient (CLI) | payer MEDICARE ==
[~2019-06-14] VITALS: Ht 152.4 cm; Wt 80.3 kg
[2019-06-14] MEDS ORDERED: TRESIBA FLEX INJ 200 SC (13:24)
[2019-06-14] MEDS ORDERED: NOVOLOG100 UNIT/1 SC (13:25)
[2019-06-14 14:10] LABS: CALCIUM 9.6 mg/dL (8.5-10.1); CARBON DIOXIDE 34.1 mmol/L (21.0-32.0); CREATININE - SERUM 0.9 mg/dL (0.6-1.3); POTASSIUM - SERUM 4.1 mmol/L (3.5-5.1)
[2019-06-14 15:05] LABS: HEMATOCRIT 48.5 % (36.0-48.0); MCH 31.1 pg (26.0-34.0); MCV 94.4 fL (80.0-100.0); MEAN PLATELET VOLUME 10.2 fL (7.4-10.4); RBC 5.14 10x6/uL (4.00-5.40); RDW 13.2 % (11.5-14.5); WBC 9.3 10x3/uL (4.8-10.8)
[2019-07-17 01:35] VITALS: Ht 152.4 cm; Wt 80.3 kg
== END 2019-06-14 08:01 | disposition home or self-care (01) ==
LOC: D.OPS 08:00 → D.PAN 06-15 10:15 → D.OPS 06-15 10:30 → D.PAN 06-15 11:15 → D.OPS 06-15 17:15 → EDSTATUS 06-15 17:15 → D.PAN 06-15 17:15
PROVIDERS: Anesthesiology; ATTEND Orthopaedic Surgery
DX: M13.811 Other specified arthritis, right shoulder (principal); M75.41 Impingement syndrome of right shoulder; M75.101 Unspecified rotator cuff tear or rupture of right shoulder, not specified as traumatic

== ENCOUNTER 2019-07-17 01:31 | Emergency (ER) | payer MEDICARE ==
[~2019-07-17] VITALS: Ht 152.4 cm; Wt 79.4 kg
[~2019-07-17 01:31] MED LIST changes: +NOVOLOG100 UNIT/1 SC; +TRESIBA FLEX INJ 200 SC
[2019-07-17 01:35] VITALS: Ht 152.4 cm; Wt 79.4 kg
[2019-07-17] MEDS ORDERED: NOVOLOG100 UNIT/1 SC (01:39)
[2019-07-17 01:53] LABS: BASOPHILS 0.7 % (0-2); EOSINOPHILS 3.3 % (0-7); HEMATOCRIT 44.9 % (36.0-48.0); IMMATURE GRANULOCYTES 0.5 % (0-5); LYMPHOCYTES 26.8 % (15-50); MCH 31.5 pg (26.0-34.0); MCHC 33.4 g/dL (31.0-37.0); MCV 94.3 fL (80.0-100.0); MEAN PLATELET VOLUME 9.6 fL (7.4-10.4); MONOCYTES 11.2 % (2-11); NEUTROPHILS 57.5 % (40-80); PLATELET COUNT 244 10x3/uL (130-400); RBC 4.76 10x6/uL (4.00-5.40); RDW 13.2 % (11.5-14.5); WBC 10.3 10x3/uL (4.8-10.8)
[2019-07-17 02:35] LABS: CALC OSMOLALITY 283 mosm/kg (275-300); CALCIUM 9.7 mg/dL (8.5-10.1); CARBON DIOXIDE 31.4 mmol/L (21.0-32.0); CHLORIDE - SERUM 105 mmol/L (98-107); CREATININE - SERUM 0.8 mg/dL (0.6-1.3); POTASSIUM - SERUM 3.6 mmol/L (3.5-5.1); SODIUM 142 mmol/L (136-145); UREA NITROGEN 22 mg/dL (7-18); eGFR NON AFRICAN AMERICAN 75 mL/min (90-120)
[2019-07-17 02:36] LABS: GLUCOSE 67 mg/dL (74-106)
[2019-07-17 02:42] LABS: ALBUMIN 3.6 g/dL (3.4-5.0); ALKALINE PHOSPHATASE 67 U/L (30-120); ALT (SGPT) 37 U/L (10-68); BILIRUBIN - TOTAL 0.29 mg/dL (0.2-1.3); MAGNESIUM - SERUM 1.7 mg/dL (1.8-2.4); PROTEIN - SERUM 7.4 g/dL (6.4-8.2)
[2019-07-17 03:16] VITALS: BP 162/74
== END 2019-07-17 03:10 | disposition home or self-care (01) ==
LOC: D.ER 01:31
PROVIDERS: Family Medicine
DX: T38.3X1A Poisoning by insulin and oral hypoglycemic [antidiabetic] drugs, accidental (unintentional), initial encounter (principal); E11.9 Type 2 diabetes mellitus without complications; Z79.4 Long term (current) use of insulin; I10 Essential (primary) hypertension; Z95.5 Presence of coronary angioplasty implant and graft; I48.91 Unspecified atrial fibrillation; I25.119 Atherosclerotic heart disease of native coronary artery with unspecified angina pectoris; J44.9 Chronic obstructive pulmonary disease, unspecified; M54.9 Dorsalgia, unspecified

== ENCOUNTER 2019-11-23 05:50 | Day surgery (SDC) | payer MEDICARE ==
--- NOTE | 2019-11-21 08:39 | NUR ---
VS: T- 98.2O R-16 HR- 76 BP LA- 142/81 POX-98%
[2019-11-21 09:03] LABS: HEMATOCRIT 45.2 % (36.0-48.0); HEMOGLOBIN 14.7 g/dL (12-16); MCH 31.4 pg (26.0-34.0); MCHC 32.5 g/dL (31.0-37.0); MCV 96.6 fL (80.0-100.0); MEAN PLATELET VOLUME 9.7 fL (7.4-10.4); RBC 4.68 10x6/uL (4.00-5.40); RDW 13.4 % (11.5-14.5)
[2019-11-21 09:09] LABS: ANION GAP 7.8 mmol/L (8-16); CALCIUM 9.2 mg/dL (8.5-10.1); CARBON DIOXIDE 32.4 mmol/L (21.0-32.0); POTASSIUM - SERUM 4.2 mmol/L (3.5-5.1)
[~2019-11-23] VITALS: Ht 152.4 cm; Wt 80.3 kg
[2019-11-23 06:33] VITALS: Ht 152.4 cm; Wt 80.3 kg
[2019-11-23] MEDS ORDERED: HYDROCODON-ACE1 EA10 PO (08:43)
--- NOTE | 2019-11-28 09:15 | OP ---
PATIENT NAME: MARKO HAMMER MEDICAL RECORD: [id number] :52 LOCATION:[facility] ADMISSION DATE: SURGEON: KALE MANCINI, YESENIA CASTILLO DATE OF OPERATION: 11/23/2019 PREOPERATIVE DIAGNOSIS: Impingement syndrome of the right shoulder with severe biceps tendinitis. POSTOPERATIVE DIAGNOSIS: Impingement syndrome of the right shoulder with severe biceps tendinitis. PROCEDURES: 1. Right shoulder arthroscopy with biceps tenotomy. 2. Right shoulder arthroscopy with arthroscopic distal clavicle excision done through separate incision -- 1 cm. 3. subacromial decompression with acromioplasty and bursectomy. SURGEON: Yesenia Henley MD ANESTHESIA: General. INTRAOPERATIVE COMPLICATIONS: None. SUMMARY OF PATHOLOGIC FINDINGS: Consistent with the preoperative diagnosis, the patient had severe impingement distal clavicle arthritis as well as a biceps tendinitis. OPERATIVE SUMMARY IN DETAIL: After obtaining the appropriate preoperative orthopedic surgery consent as well as anesthetic consultation, evaluation and clearance, the patient was brought to the operating room and placed on the operating table in supine position. After general laryngeal mask airway anesthesia was administered, the patient was placed in left lateral decubitus position. All pressure points were well padded to include down leg peroneal pad as well as axillary roll. The patient was held firmly to the operating table using the vacuum pack suction system. Right upper extremity and shoulder were then prepped and draped in routine sterile fashion. The arm was held in the Arthrex traction boom at 30 degrees of forward flexion, 30 degrees of abduction, 10 pounds of traction laterally. Arthroscopy was established in the glenohumeral joint from the posterior portal. Anterior portal was established in the anterior safe interval. Please make note, with the prior to beginning the procedure, appropriate timeout was taken and agreed upon by all given the patient's unique identifiers. Diagnostic arthroscopy showed the patient to have severe biceps tendinitis. This was released using the Hilliards tissue ablation system: No undersurface rotator cuff tearing was seen; however, there was mild chondromalacia at the central aspect of the glenoid head. Having completed this, attention was turned to the subacromial space. While on subacromial space, Arthrex Hilliards tissue ablation system was utilized to denude the undersurface of the acromion of all soft tissue elements and release the coracoacromial ligament. A 5-0 barrel bur was used to perform acromioplasty at the level of acromioclavicular joint. Having completed this, attention was turned to the AC joint and under direct arthroscopic visualization, distal clavicle was excised for 1 cm. Having completed this, the residual of the subacromial bursa was removed anteriorly, posteriorly as well as laterally and superiorly. Arthroscopy portals were then closed in routine interrupted fashion using 4-0 Prolene. Sterile dressings were applied. The patient was awakened OPERATIVE REPORT [id number] MARKO HAMMER and taken to recovery room in stable condition. All final needle and sponge counts were correct. TRANSINT:[id number] Voice Confirmation ID: [id number] DOCUMENT ID: [id number] KALE MANCINI, YESENIA CASTILLO at 0915 CC: [id number] DICTATION DATE: 11/27/19 0707 CLOTHING CONSULTANT: 11/27/19 1525 [facility] 11/23/19 [place] [id number] [place] [address]
== END 2019-11-23 10:35 | disposition home or self-care (01) ==
LOC: D.OPS 05:50 → D.PAN 07:45 → D.OPS 08:00 → D.PAN 08:00 → D.OPS 10:35
PROVIDERS: Anesthesiology; ATTEND Orthopaedic Surgery
DX: M75.41 Impingement syndrome of right shoulder (principal); M75.21 Bicipital tendinitis, right shoulder; J44.9 Chronic obstructive pulmonary disease, unspecified; K21.9 Gastro-esophageal reflux disease without esophagitis; I10 Essential (primary) hypertension; Z72.0 Tobacco use; E11.9 Type 2 diabetes mellitus without complications; Z79.84 Long term (current) use of oral hypoglycemic drugs; M25.511 Pain in right shoulder; M75.101 Unspecified rotator cuff tear or rupture of right shoulder, not specified as traumatic; M13.811 Other specified arthritis, right shoulder

== ENCOUNTER 2020-02-28 15:30 | Outpatient (CLI) | payer MEDICARE ==
[2019-11-23 06:33] VITALS: BMI 34.6
[~2020-02-28 15:30] MED LIST changes: +HYDROCODON-ACE1 EA10 PO
== END 2020-02-28 23:59 | disposition home or self-care (01) ==
LOC: D.MAMMO 15:30
PROVIDERS: ATTEND Family Medicine
DX: Z12.31 Encounter for screening mammogram for malignant neoplasm of breast (principal)